=== PATIENT | male | born 1980 | race Hispanic/Latino ===

== ENCOUNTER 2025-01-17 16:36 | Emergency (ER) | payer OTHER ==
[~2025-01-17] VITALS: Ht 167.6 cm; Wt 93.0 kg
[2025-01-17 16:40] VITALS: PULSE 82; RESP 20; TEMP 97.4; O2SAT 95
[2025-01-17] MEDS: TETANUS/DIPHTHERIA TOX ADULT 0.5 ML SYR IM ONE (17:23)
== END 2025-01-17 17:25 | disposition home or self-care (01) ==
LOC: FSED 16:41
DX: S01.112A Laceration without foreign body of left eyelid and periocular area, initial encounter (principal); W01.198A Fall on same level from slipping, tripping and stumbling with subsequent striking against other object, initial encounter; Y99.0 Civilian activity done for income or pay; E78.5 Hyperlipidemia, unspecified
CPT/HCPCS: 90471; 90714; 99284